=== PATIENT | female | born 1950 | race Caucasian/White ===

== ENCOUNTER 2025-02-26 13:00 | Emergency (ER) | payer MEDICARE, OTHER, SELFPAY ==
[2025-02-26 13:10] VITALS: BP 150/90
[2025-02-26 14:08] VITALS: BP 153/93
[2025-02-26 14:28] VITALS: BMI 23.0
[2025-02-26 14:50] LABS: Hematocrit 38.1 % (37.0-47.0); Hemoglobin 12.6 g/dL (12.0-16.0); Mean Corp Hgb Conc. 33.1 g/dL (33.0-37.0); Mean Corpuscular Volume 86.4 fL (81.0-99.0); Nucleated Red Blood Cells % 0 %; Platelet Count 270 10^3/uL (130-400); Red Cell Dist. Width 12.7 % (11.5-14.5)
[2025-02-26 15:11] LABS: ALT (SGPT) 35 U/L (0-35); AST (SGOT) 27 U/L (14-36); Albumin 4.5 g/dl (3.5-5.0); Alkaline Phosphatase 81 U/L (38-126); Blood Urea Nitrogen 15 mg/dl (7-17); Calcium 9.7 mg/dl (8.4-10.2); Carbon Dioxide 24 mmol/L (22-30); Chloride 104 mmol/L (98-107); Estimated Creatinine Clearance 70 ml/min; Glucose 103 mg/dl (70-99); Potassium 4.1 mmol/L (3.5-5.1); Sodium 136 mmol/L (135-145); Total Protein 7.1 g/dl (6.3-8.2); eGFR > 60.00
[2025-02-26 15:44] VITALS: BP 152/95
[2025-02-26 15:47] VITALS: BP 152/95
--- NOTE | 2025-02-26 15:55 | EDRN ---
Reviewed discharge instructions with patient. Verbalized understanding. Ambulated with steady gait to the lobby.
[2025-02-26 16:22] VITALS: BP 152/95
--- NOTE | 2025-02-26 19:06 | ED.GENMED ---
History of Present Illness
General
Chief Complaint: Skin Problem
Time Seen by Provider: 02/26/25 13:34
Course
Orders/Labs/Results
Orders:
Orders
02/26/25 13:52
IV Insert/Care/Rem.- Treatment PRN
CR Foot - Left Min 3 Views Urgent
Comment:
Reason For Exam: plantar laceration, infection
02/26/25 14:28
Complete Blood Count/With Diff Urgent
Comprehensive Metabolic Panel Urgent
Lactic Acid Urgent
02/26/25 15:50
Wound Culture [Wound/Abscess/Other Culture] Urgent
[facility] Source: Foot
Specimen Description: Left
Date Specimen was Collected: 02/26/25
Time Specimen was Collected: 15:46
Abnormal Lab Results
02/26/25
14:28
Absolute Monos (auto) 0.7 H 10^3/uL
(0.1-0.6)
Lymphocytes % 17.6 L %
(20.5-51.1)
Glucose 103 H mg/dl
(70-99)
02/26/25 14:28
02/26/25 14:28
Vital Signs
Initial and Last Documented VS:
Initial Vital Signs
Temp Pulse Resp BP Pulse Ox
36.7 C 81 16 150/90 98
02/26/25 13:10 02/26/25 13:10 02/26/25 13:10 02/26/25 13:10 02/26/25 13:10
Last Documented Vital Signs
Temp Pulse Resp BP Pulse Ox
36.9 C 86 18 152/95 98
02/26/25 16:22 02/26/25 16:22 02/26/25 16:22 02/26/25 16:22 02/28/25 06:04
MDM/Problems Addressed
MDM/Problems Addressed:
Note:
CHIEF COMPLAINT(S)
Foot infection following a laceration.
HISTORY OF PRESENT ILLNESS
The patient is a 74-year-old female who presented with an infection on her foot following a cut sustained during a fall on what she believes was a radiator on 5 days ago. pt sy sthe following day she went to PCP who Initial suggested the need for
stitching the wound, but the patient declined the procedure at that time. She was administered a tetanus vaccine and prescribed Cephalexin (Keflex).
The patient noted subsequent worsening of the wound with increased swelling and redness, prompting her to visit urgent care yesterday, where the antibiotic was changed to Doxycycline. As of today, she reports a further exacerbation with inflammation
extending up the foot, accompanied by mild drainage and pain upon palpation. There is no reported fever or chills. The patient denies being diabetic. She is using hydrogen peroxide for cleaning, which has been advised against due to potential tissue
damage. Instead, warm salt water or wound cleanser is recommended for cleaning.
The patient reports that the onset of infection symptoms began after initial treatment. She is concerned about the potential need for more aggressive intervention.
SOCIAL DETERMINANTS AFFECTING HEALTH
The patient describes difficulty in avoiding contact with the wound due to being barefoot and walking on the side of her foot due to pain, which may impede proper healing.
PHYSICAL EXAM
- Reviewed nursing notes and vital signs.
- Cardiovascular: Noted a visible red streak extending from the wound on her foot upward.
- Dermatological: Significant inflammation and swelling were observed at the site of the cut.
- No signs of systemic upset such as fever or other systemic inflammation markers were reported during the examination.
PROBLEM LIST
Acute Problems:
1. Foot laceration with secondary infection.
2. Erythema and swelling suggestive of cellulitis.
PLAN
- Obtain blood work to assess for systemic involvement of the infection.
- Jamil the boundaries of erythema to monitor progression.
- Encourage warm water soaks and cessation of hydrogen peroxide use for cleansing to promote healing and prevent tissue damage.
- Monitor for signs of systemic infection, such as fever or further red streaking.
- Contemplate the administration of a single dose of intravenous antibiotics pending blood work results to bolster initial response to Doxycycline.
- Advise the patient to return for hospital admission should the condition deteriorate, particularly in the event of increased swelling, fever, or infection proximation extending beyond the marked bound.
DIFFERENTIAL DIAGNOSIS
The Differential Diagnosis includes, in no particular order and is not limited to:
1. Cellulitis
2. Lymphedema
3. Cutaneous Abscess
4. Erysipelas
5. Superficial Thrombophlebitis
6. Deep Vein Thrombosis
7. Septic Arthritis
8. Tendonitis
9. Osteomyelitis
10. Necrotizing fasciitis
*Pulse Oximetry
SaO2: 98
Oxygen Mode of Delivery: Room air
ED Attending Note
-
Portions of this chart may have been created with voice recognition software.� Occasional wrong word or��sound alike� substitutions may have occurred due to the inherent limitations of voice recognition software.
Discharge Plan
Departure
Patient Disposition: Home (Routine Discharge)
Date of Disposition: 02/26/25
Time of Disposition: 15:34
Patient with high blood pressure during this ER visit?: No
Condition: Fair
Covid-19: Not Applicable
Discharge Problem:
Foot infection
Instructions: Cellulitis (Skin Infection), Adult (DC)
Referrals:
Ngoc Mcpherson MD [Family Provider, Family Practice] - Follow up in 2-3 days
Activity Restrictions/Additional Instructions:
Your foot is infected but your blood markers are very reassuring. I maine a line around your redness, watch for extension outside the line of the next 48 hours and return as needed. Otherwise soak your wound in warm salt water 2-3 times a day for
10 minutes at a time to keep it clean
We cultured the wound to see what bacteria is and there. We will call you if we need to switch your antibiotic
Elevate your foot and try to stay off of your foot for the next 2 days other than walking short distances
Return for fever, chills, severe pain, inability to walk etc.
Interventions
Interventions:
*Risk Screen - Suicide Last Done: 02/26/25 13:10
*General Assessment Last Done: 02/26/25 14:28
*Neglect/Abuse Screening Last Done: 02/26/25 13:10
*ED- Fall Risk Assessment Last Done: 02/26/25 14:28
*ED COVID-19 Vaccine History Last Done: 02/26/25 14:28
*ED Influenza Vaccine History Last Done: 02/26/25 14:28
*Nursing Disposition Last Done: 02/26/25 16:22
ED-Skin Assessment Last Done: 02/26/25 14:28
Discharge Date and Time
Discharge Date/Time: 02/26/25 16:00
Print Language: ETHIOPIAN
== END 2025-02-26 16:00 | disposition home or self-care (01) ==
LOC: EMR 13:00
PROVIDERS: Physician Assistant; EMERGENCY PHYSICIAN Emergency Medicine; FAMILY PHYSICIAN Family Medicine
DX: L08.9 Local infection of the skin and subcutaneous tissue, unspecified (principal)
CPT/HCPCS: 99283; 73630; 80053; 83605; 85025; 87070; 87205